=== PATIENT | female | born 1995 | race Two or more races ===

== ENCOUNTER 2025-03-26 13:56 | Outpatient (REF) | payer OTHER, SELFPAY ==
[2025-03-26 18:58] LABS: Alanine Aminotransferase 19 U/L (0-31); Albumin Level 4.5 g/dL (3.5-5.0); Alkaline Phosphatase 60 U/L (39-117); Anion Gap 11 (12-20); Aspartate Amino Transferase 23 U/L (5-31); Blood Urea Nitrogen 10 mg/dL (9-16); Calcium 8.7 mg/dL (8.4-10.2); Carbon Dioxide 26 mmol/L (22-29); Chloride 108 mmol/L (96-108); Cholesterol 183 mg/dL (<200); Estimated Glomerular Filt Rate > 60; HDL Cholesterol 62 mg/dL (>40); Iron 71 mcg/dL (30-160); Percent Iron Saturation 24 % (15-50); Potassium 3.7 mmol/L (3.3-5.1); Sodium 141 mmol/L (135-145); Total Iron Binding Capacity 297 mcg/dL (228-428); Total Protein 7.6 g/dL (6.5-8.0); Triglycerides 98 mg/dL (<150); Unsaturated Iron Binding 226 ug/dL
[2025-03-26 19:02] LABS: Ferritin 53 ng/mL (10-122); Hematocrit 37.3 % (37.0-47.0); Hemoglobin 12.3 g/dl (12.0-16.0); Mean Corpuscular HGB Conc 33.0 g/dl (31.0-35.0); Mean Corpuscular Hemoglobin 28.0 pg (27.0-33.0); Mean Corpuscular Volume 85.0 fL (80.0-98.0); NRBC Abs Auto 0.000 X10*3/uL (0.0-0.012); NRBC Pct Auto 0.0 /100WBC (0.0-0.2); Platelet Count 416 X10*3/uL (160-400); Red Blood Count 4.39 X10*6/uL (4.20-5.50); White Blood Count 5.4 X10*3/uL (4.8-10.8)
[2025-03-26 19:04] LABS: Folate 9.3 ng/mL (> or = 4.0); Vitamin B12 658 pg/mL (200-900)
== END 2025-03-26 13:57 | disposition home or self-care (01) ==
LOC: HO.WFDLDS 13:56
PROVIDERS: PCP Nurse Practitioner Family; Visit Provider Nurse Practitioner Family
DX: Z00.00 Encounter for general adult medical examination without abnormal findings (principal); L65.9 Nonscarring hair loss, unspecified; E55.9 Vitamin D deficiency, unspecified; D64.9 Anemia, unspecified; R53.83 Other fatigue; N92.6 Irregular menstruation, unspecified; Z80.3 Family history of malignant neoplasm of breast; Z97.5 Presence of (intrauterine) contraceptive device; Z87.42 Personal history of other diseases of the female genital tract; Z28.21 Immunization not carried out because of patient refusal; Z13.1 Encounter for screening for diabetes mellitus; Z76.89 Persons encountering health services in other specified circumstances
CPT/HCPCS: 36415; 80053; 80061; 82043; 82306; 82570; 82607; 82728; 82746; 83036; 83540; 84443; 85027; 96127

== ENCOUNTER 2025-03-26 13:56 | Outpatient (AMB) | payer OTHER, SELFPAY ==
--- NOTE | 2025-03-26 14:02 | A.OFFPC_ITS ---
Vital Signs 03/26/25 14:08 Height 5 ft 2 in Weight 162 lb 4 oz BMI 29.7 BP 122/70 Blood Pressure Location Lt brachial Position Sitting Respiration 12 Pulse 97 Pulse Source Pulse Oximeter Temp 97.2 F Temp Source Oral Pulse Oximetry (%) 98 Oxygen Delivery Method Room Air Intake Visit Reasons: CPE Intake Note: New patient to establish care and cpe Histology Supervisor Required: No Allergies No Known Allergies Allergy (Verified 03/26/25 14:04) Medication List - Last Reconciled 03/26/25 by BREANNA Rodriguez No Known Home Meds Tobacco use date assessed: 03/26/25 Dental Screening Dental Screen Date: 03/26/25 Did you have a dental visit in the last 12 months?: Yes Did you have a dental problem in the last 6 months where you did not have access to dental care?: No Was dental information given to patient?: Patient has dentist HPI HPI Comments History of Present Illness Details 29-year-old female with hx of abnormal p ap, hx of gastritis Social: Has 2 children, works as machinst for [employer] Fhx: Surgery: colpo Health Maintenance: PAP UTD, active w/ [employer]OR [employer] DOOR FUNDRAISING COLLECTOR Tdap 2019 Flu declined 03/26/25 Specialists: [employer]AISING COL[employer] History of Present Illness The patient is a 29-year-old female presenting to establish care, for a cpe, a nd for evaluation of fatigue. Fatigue: - The patient reports feeling very, mitchell y tired. - Her last blood work was performed duri ng her last , approximately six years ago. - She reports being under a significant amount of stress. Hair Loss: - The patient reports significant hair l oss, noting that a large amount falls out when she washes it, enough to clog the drain. - She states she has always had some str uggles with her hair. Irregular Menstruation: - The patient reports her menstrual cycl e is all over the place. - She currently has a Nexplanon implant, which is due for removal in October of next year. - She notes her cycle was similarly irre gular during her previous experience with the implant. History of Abnormal Pap Smear: - The patient has a history of two or th ree abnormal Pap smears. - One of the abnormal results led to a c olposcopy, which had fine results. - The abnormal cells subsequently cleare d on their own. - Her last Pap smear, performed last yea r, was normal. Family history of malignant neoplasm of breast: - The patient's maternal grandmother was diagnosed with breast cancer at an age younger than 50. - The patient is unaware if the cancer w as genetic. - She has limited knowledge of her exten ded family's medical history. Past Medical History - History of gastritis as a child, which has since resolved. - History of 2-3 abnormal Pap smears, wi th a subsequent normal colposcopy and spontaneous resolution. Her most recent Pap smear was normal. - History of astigmatism, which is not c urrently bothersome. - Nexplanon implant currently in use, du e for removal in October of next year. - Denies history of gestational diabetes or hypertension. Past Surgical History - Colposcopy following an abnormal pap s mear. Family History - Maternal grandmother had breast cancer before the age of 50. - The patient has limited information on her family history otherwise. Social History - Employment: Works as a milling machinist. - Family status: Has two children, aged 8 and 6. - Child development: Her 6-year-old john bloom has ADHD. - Stress: Reports being under a signific ant amount of stress. Health Maintenance - The patient was advised to follow up w ith her DYE MIXER for breast care. - Vaccination status was reviewed; the butch roach will complete her hepatitis B vaccine series at her workplace and has declined the influenza vaccine. - Plan to obtain blood work today. Review of Systems - Constitutional: Reports significant fa tigue. Reports high levels of stress. - Integumentary: Reports significant jasmeet r loss. Denies any open areas or sores on her feet. - HEENT: Reports a dry nose. Denies prob lems with her vision, but notes a history of astigmatism. Denies feeling weak or faint with lab draws. - Gastrointestinal: Reports normal bowel and bladder function. Denies abdominal pain. - Genitourinary: Reports irregular menst rual cycles. Physical Exam General: Well developed, well nourished, in no acute distress. Appears stated age. Patient reports feeling very tired and experiencing hair loss. Head: Normocephalic, atraumatic. Eyes: Pupils are equal, round and reactive to light and accommodation. Conjunctivae are clear. Scleras nonicteric bilat. Vision grossly normal. Ears: TMs clear AU, EACS WNL Nose: Patent, without discharge. Patient reports dryness in the nose. Neck: No carotid bruit bilat. Supple, no adenopathy or thyromegaly. Patient reports no pain or tenderness. Breast: Edu on SBE. Family history of breast cancer in maternal grandmother before age 50. Lungs: Clear to auscultation bilaterally. No rales, rhonchi or wheeze noted. Good air flow in all page. Heart: Regular rate and rhythm. No murmurs, click, rubs or gallops are noted. Abdomen: Bowel sounds present in all quadrants. The abdomen is soft, nontender, with no masses or organomegaly noted. No hernias are noted. : Deferred. Reviewed recommendations for routine [employer]OR FUNDRAISING COL[employer]OR. Pulses: Peripheral pulses are equal and palpable bilaterally. Extremities: No clubbing, cyanosis nor edema is noted. Patient reports no open areas or sores on feet. Neurologic: Gait and station normal. Cranial Nerves 2-12 intact. Motor strength grossly symmetrical and intact. No sensory loss. Balance normal. Skin: No rashes, ulcers, or lesions noted. Turgor is good. Skin color is good. Hair and nails are without abnormalities, although patient reports significant hair loss. Psych: Normal eye contact, affect and mood appropriate, and normal interactions. Patient is alert and appropriate to context. Reports being under a lot of stress. Results - Pap Smear: Patient reports her last pa p smear, performed last year, was normal. - Colposcopy: A past colposcopy followin g an abnormal pap smear was normal. Medical Decision Making The patient is a 29-year-old female here to establish care. Her main concerns are fatigue and hair loss. She has not had routine lab work since her last six years ago, so a general lab screen is indicated to evaluate for common causes of fatigue, such as anemia or thyroid issues. Due to the additional complaint of significant hair loss, the lab panel will be expanded to further investigate potential underlying causes. Her irregular menstrual cycle is likely attributable to her Nexplanon implant, as she had a similar experience with a previous implant. The family history of premenopausal breast cancer in her maternal grandmother is noted, and the importance of continued breast health screening with her DYE MIXER was discussed. The plan is to obtain labs to investigate her symptoms and follow up in two weeks to review the results. Plan 1. Fatigue - A general lab screening will be perfor med to investigate potential causes. - A follow-up visit is scheduled in [facility] two weeks to review the lab re sults, which can be conducted either in-person or via telehealth. 2. Hair Loss - Additional labs will be ordered to inv estigate potential causes of hair loss. Patient Instructions - Please stop at the motel front desk attendant to get a printout from today's visit. - Let the staff at the motel front desk attendant know t hat you need to have blood work done. - Schedule a follow-up appointment in out two weeks to review your lab results. You can choose to have this appointment in person or as a video visit. - Remember to contact your OBGYN's offic e to schedule your breast exam for this year. - If you are experiencing dry nose, you can use a saline (salt water) spray to help with moisture. - You are due for your last dose of the hepatitis B vaccine, which can be administered through your workplace. Consent Patient was informed and verbally consented to the use of an ambient scribe for clinic note documentation during this visit. An additional 20 minutes was spent addressing the problem(s) noted at todays visit. This includes time spent before the visit reviewing the chart, time spent during the visit, and time spent after the visit on documentation reviewing laboratory results, diagnostic imaging, medications, performing a medically necessary evaluation, counseling on diagnoses, care coordination, ordering appropriate tests, ordering appropriate medications, review of tests performed by other providers, reporting test results with the patient, communication with other healthcare providers. [facility] Medical History (Updated 03/26/25 @ 14:40 by ZEINAB Rodriguez-PRIYANKA) No pertinent past medical history Surgical History (Updated 03/26/25 @ 14:29 by ZEINAB Rodriguez-PRIYANKA) History of colposcopy No pertinent past surgical history Family History (Updated 03/26/25 @ 14:16 by Heber Alexis MA) Father HTN (hypertension) Substance abuse Maternal Grandmother HTN (hypertension) Breast cancer Paternal Grandmother HTN (hypertension) High cholesterol Asthma Sister Asthma Paternal Grandfather Substance abuse Social History (Updated 03/26/25 @ 14:03 by Heber Alexis MA) Housing: House Alcohol intake: current Alcohol intake frequency: a few times a month Patient Tobacco Use Status: Never used Tobacco e-Cigarette/Vaping Use: Never Used Second Hand Smoke Exposure: No service: No Current occupational status: employed Current occupation: [employer] Cognitive needs: No Hearing needs: No Vision needs: No Questionnaire PHQ-9 Over the last 2 weeks, how often have you been bothered by any of the following problems? 1. Little interest or pleasure in doing things: not at all 2. Feeling down, depressed, or hopeless: several days 3. Trouble falling or staying asleep, or sleeping too much: not at all 4. Feeling tired or having little energy: several days 5. Poor appetite or overeating: more than half the days 6. Feeling bad about yourself - or that you are a failure or have let yourself or your family down: not at all 7. Trouble concentrating on things, such as reading the newspaper or watching television: not at all 8. Moving or speaking so slowly that other people could have noticed. Or the opposite - being so fidgety or restless that you have been moving around a lot more than usual: not at all 9. Thoughts that you would be better off or of hurting yourself in some way: not at all Total score: 4 Depression Screening Interpretation: Negative Depression Screening Done: Yes 14626 - PHQ-9 Billing: Yes Source: Developed by Drs. Baudilio Mondragon, Cheyanne Alberto, Mariano Michelle and colleagues, with an educational vance from [employer]. Thrive Questionnaire Date Thrive assessed: 03/26/25 I am a: Patient What is your living situation today?: I have a steady place to live Within the past 12 months, did the food you bought not last and you didn't have the money to get more?: Never true Within the past 12 months, did you worry whether your food would run out before you got money to buy more?: I choose not to answer this question Do you have trouble paying for medicines?: No Do you have trouble getting transportation to medical appointments?: No Do you have trouble paying your heating and electricity bill?: No Do you have trouble taking care of your child, family member or friend?: No Do you have trouble with day-to-day activities such as bathing, preparing meals, shopping, managing finances, etc.?: No Are you currently unemployed and looking for a job?: No Are you interested in more education?: Yes Please select the resources that you would like help with: Childcare Currently or been in a relationship where the following occur: No concerns reported THRIVE Score: 0 AUDIT C Alcohol Use Questionnaire (AUDIT-C) 1. How often do you have a drink containing alcohol?: 2-4 times a month 2. How many drinks containing alcohol do you have on a typical day when you are drinking?: 1 or 2 3. How often do you have six or more drinks on one occasion?: Never Total Score: 2 Score Reviewed/Action Taken: Yes RHONA-7 AMB Questionnaire RHONA-7 Date RHONA - 7 assessed: 03/26/25 Feeling nervous, anxious, or on edge: 1 = Several days Not being able to stop or control worryin = Several days Worrying too much about different things: 1 = Several days Trouble relaxin = Not at all Being so restless that it is hard to sit still: 0 = Not at all Becoming easily annoyed or irritable: 1 = Several days Feeling afraid as if something awful might happen: 0 = Not at all Total RHONA-7 score (0-4 normal; 5-9 mild; 10-14 moderate; 15-21 severe): 4 Source: Developed by Drs. Baudilio Mondragon, Cheyanne Alberto, Mariano Michelle and colleagues, with an educational vance from [employer]. RHONA-7 Assessment Billing RHONA-7 Assessment Tool: RHONA-7 Assessment 08002 Physical exam (Primary Care) Vital Signs: Last Vital Signs Temp 97.2 F 03/26/25 14:08 Pulse 97 03/26/25 14:08 Resp 12 03/26/25 14:08 BP 122/70 03/26/25 14:08 Pulse Ox 98 03/26/25 14:08 Oxygen Delivery Method Room Air 03/26/25 14:08 BMI result Body Mass Index 29.7 Tobacco/Smoking Status: Tobacco use Status Tobacco use date assessed 03/26/25 03/26/25 14:11 Patient Tobacco Use Status Never used Tobacco 03/26/25 14:11 e-Cigarette/Vaping Use Never Used 03/26/25 14:11 PHQ-9: PHQ-9 Score PHQ-9: Total score 4 03/26/25 14:04 Depression Screening Interpretation: Negative Thrive Assessment: Date of Thrive Assessment Date Thrive assessed 03/26/25 03/26/25 14:04 Currently or been in a relationship where the following occur: No concerns reported Coding Level of Care Code New Pt Level 3 (22636) New Pt Prev Care 18-39yr(33215 Diagnoses Encounter to establish care Z76.89 Family history of breast cancer Z80.[address] Z97.5 Fatigue R53.83 Laboratory exam ordered as part of routine general medical examination Z00.00 History of abnormal cervical Pap smear Z87.42 Influenza vaccination declined Z28.21 Hair loss L65.9 Encounter for general adult medical examination without abnormal findings Z00.00 Additional Codes RHONA-7 Assessment Billing - RHONA-7 Assessment Tool: RHONA-7 Assessment 75208 ([id number]) PHQ-9 - 26954 - PHQ-9 Billing: Yes ([id number]) Assessment & Plan Assessment & Plan (1) Encounter to establish care: Code(s): Z76.89 - Persons encountering health services in other specified circumstances (2) [place] history of breast cancer: [place] [facility] [place] Code(s): Z80.3 - Family history of malignant neoplasm of breast Category: Medical (3) Nexplanon in place: Code(s): Z97.5 - Presence of (intrauterine) contraceptive device Category: Medical (4) Fatigue: Code(s): R53.83 - Other fatigue Category: Medical (5) Laboratory exam ordered as part of routine general medical examination: Code(s): Z00.00 - Encounter for general adult medical examination without abnormal findings Category: Medical (6) History of abnormal cervical Pap smear: Onset Date: ~2023 Comment: [facility] Code(s): Z87.42 - Personal history of other diseases of the female genital tract Category: Medical (7) Influenza vaccination declined: Onset Date: ~03/26/25 Code(s): Z28.21 - Immunization not carried out because of patient refusal Category: Medical (8) Hair loss: Code(s): L65.9 - Nonscarring hair loss, unspecified Category: Medical (9) Encounter for general adult medical examination without abnormal findings: Onset Date: ~03/26/25 Code(s): Z00.00 - Encounter for general adult medical examination without abnormal findings Category: Medical Plan , Orders: Orders Complete Blood Count no Diff Today Z00.00 - Encounter for general adult medical examination without abnormal findings Comprehensive Met. Panel Today Z00.00 - Encounter for general adult medical examination without abnormal findings Lipid Panel Today Z00.00 - Encounter for general adult medical examination without abnormal findings Microalbumin, Random (w Creat) Today Z00.00 - Encounter for general adult medical examination without abnormal findings IRON PROFILE Today L65.9 - Nonscarring hair loss, unspecified Ferritin Today L65.9 - Nonscarring hair loss, unspecified Hemoglobin A1c Today Z00.00 - Encounter for general adult medical examination without abnormal findings TSH reflex Free T4 Today Z00.00 - Encounter for general adult medical examination without abnormal findings Vitamin B12 and Folate Today Z00.00 - Encounter for general adult medical examination without abnormal findings Vitamin D 25-OH Total Today Z00.00 - Encounter for general adult medical examination without abnormal findings Patient Instructions: Walk-In Care (Urgent Care): We Make it Easy Walk-in for urgent medical issues such as: ? Seasonal Allergies ? Insect Bites ? Cough ? Diarrhea ? Acute Asthma Attacks ? Back, Knee or Joint Pain ? Ear Infection ? Fever without a Rash ? Headaches ? Nausea ? [place] [facility], Rash or Skin Irritation ? Sore Throat ? Sports Physicals ? Vomiting Most insurances are accepted. Patients do not need to be part of the [facility] to seek care at the walk-in clinic. Locations [address], [place] Open Tuesday through Tuesday 8am-5pm *Hours may vary due to staffing availability. To confirm Walk-In Care hours please call. [address] [place] [address] ? [phone] [facility] Walk-In Care in [place] provides services to ages 18 and over. Open Tuesday-Tuesday: 7 a.m. to 5 p.m. and Tuesday: 9 a.m. to 3 p.m.* *Hours may vary due to staffing availability. To confirm Walk-In Care hours in [place], please call [phone]. [address] [place] [address] ? [phone] [facility] Walk-In Care in [place] provides services to ages 12 and over. Open Tuesday-Tuesday: 8 a.m. to 5 p.m. Hours may vary due to staffing availability. To confirm Walk-In Care hours in [place], please call [phone]. LABORATORY SERVICES: [facility] ? Primary Location [address] [place] [address] Tuesday through Tuesday 6:00 AM ? 5:00 PM Tuesday 7:00 AM ? 11:00 AM* [phone] The [facility] is centrally located near the front entrance of the [facility] for easy outpatient access. Convenient parking is provided for outpatients. *Hours may vary due to staffing availability. To confirm Laboratory hours for any location, please call [phone]. Offsite Location For your convenience, we offer offsite laboratory draw stations at the following locations: [address] [place] [address] ? [facility] [address], [address] Tuesday through Tuesday 7:30 AM ? 1:00 PM* [phone] *Hours may vary due to staffing availability. To confirm Laboratory hours for any location, please call [phone]. [place] ? [address] Tuesday through Tuesday 6:00 AM ? 3:30 PM* Tuesday 6:30 AM ? 3 PM* [phone] *Hours may vary due to staffing availability. To confirm Laboratory hours for any location, please call [phone] [place] [address] Tuesday through Tuesday 7:30 AM ? 4:00 PM* [phone] *Hours may vary due to staffing availability. To confirm Laboratory hours for any location, please call [phone] [place] [address] Tuesday through 9:00 AM ? 4:00 PM* *Hours may vary due to staffing availability. To confirm Laboratory hours for any location, please call [phone]. Appointments are not necessary. Walk-ins are welcome. Like all the departments throughout the [facility], our Lab undergoes frequent reviews to ensure the quality and accuracy of test results, and our staff takes special pride in its status as a nationally accredited facility. Patient Portal: [employer] [facility] ONE PATIENT. ONE RECORD. BETTER CARE. [facility] has a fully integrated, cutting- edge mobile electronic health information system that has revolutionized the way we care for our patients and manage our organization. This system improves communication and coordination enabling us to provide safe, higher-quality care, and an overall positive experience for staff and patients. Our first priority, as always, is to deliver the highest quality care possible. The system is running in the background supporting that priority. This portal is for all [facility] services and practices. If you are experiencing any technical difficulties with enrolling or logging into the Patient Portal please complete the [facility] Patient Portal Technical Support Form. [facility] now offers a new secure on-line interactive tool for patients to review their health information ? ?Patient Portal. This interactive web portal will enable patients and their families to take an active role in their care by providing easy, secure access to their health information via the internet. The Patient Portal provides patients with instant access to their health information, including laboratory results, medications, allergies, demographic information, visit history, and more. In addition to managing their own care, parents and health care proxies with authorized consent will appreciate the ability to access the records of those individuals for whom they provide care. Please note: if you wish to gain access (Proxy) to another patient?s portal, you will be required to come to the Medical Records Department in person at [facility]. Both the patient giving proxy access and the proxy will need to provide photo identification and complete the appropriate authorization. The Patient Portal also allows track their appointments online. The [facility] Patient Portal also saves patients time by allowing them to submit updates to their demographic and contact information prior to their visits. Portal email notifications will also alert patients to any new activity on their portal, such as test results and new appointments. In order to initially enroll in the [facility] Patient Portal, you will need to enter some required information including the following: * your [facility] Medical Record number * your personal home email address * name * date of Please note: In order to enroll in the [facility] Patient Portal, we need to have your email address on file in your electronic medical record. ?The email address needs to be specific for one person (yourself) in order for your Portal enrollment to be successful. ?You can update your email address in person with our Registration staff when you are registering for a hospital visit. ?Otherwise , you will need to come to the Health Information Management (Medical Records) Department at [facility]. ?We are open from Tuesday ? Tuesday from 7:30 a.m. ? 4:30 p.m. ?You will be required to present a photo id. Once you have successfully enrolled in the Patient Portal, you will receive a one-time user id and password for the Portal, sent to your email address. ?This will allow you to log into the Patient Portal within 99 hrs and reset your own logon id and password, and define personal security questions. ?Once your permanent login and password have been set, you can log into the [facility] Patient Portal at any time via the blue button above or from the Portal Logon button on any page of the [facility] website. [facility] and [facility] encourage all of our patients to enroll in Patient Portal as it presents a valuable opportunity for patients and their families to actively participate in their care and stay healthy Welcome to [facility]. ?We look forward to working with you. Health screenings for women You should visit your health care provider from time to time, even if you are healthy. The purpose of these visits is to: Screen for medical issues Assess your risk for future medical problems Encourage a healthy lifestyle Update vaccinations and other preventive care services Help you get to know your provider in case of an illness Information Even if you feel fine, you should still see your provider for regular checkups. These visits can help you avoid problems in the future. For example, the only w ay to find out if you have high blood pressure is to have it checked regularly. High blood sugar and high cholesterol levels also may not have any symptoms in the early stages. A simple blood test can check for these conditions. There are specific times when you should see your provider or receive specific health screenings. The [place] Preventive Services Task Force publishes a list of recommended screenings. Below are screening guidelines for women ages 18 to 39. BLOOD PRESSURE SCREENING Your blood pressure should be checked at least once every 3 to 5 years if: Your blood pressure is in the normal range (top number less than 120 mm Hg and bottom number less than 80 mm Hg) You don't have risk factors for high blood pressure Ask your provider if you need your blood pressure checked more often if: The top number is 120 to 129 mm Hg or the bottom number is 70 to 79 mm Hg You have diabetes, heart disease, kidney problems, are overweight, or have certain other health conditions You have a first-degree relative with high blood pressure You are Black You had high blood pressure during a If the top number is 130 mm Hg or greater or the bottom number is 80 mm Hg or greater, this is considered stage 1 hypertension. Schedule an appointment with your provider to learn how you can reduce your blood pressure. Watch for blood pressure screenings in your area. Ask your provider if you can stop in to have your blood pressure checked. BREAST CANCER SCREENING Experts do not agree about the benefits of breast self-exams in finding breast cancer or saving lives. Talk to your provider about what is best for you. A screening mammogram is not recommended for most women under age 40. Your provider may discuss and recommend mammograms, MRI scans, or ultrasounds if you have an increased risk for breast cancer, such as: A mother or sister who had breast cancer at a young age (most often starting screening earlier than the age the close relative was diagnosed) You carry a high-risk genetic marker CERVICAL CANCER SCREENING Cervical cancer screening should start at age 21 years unless your provider advises otherwise. After the first test: Women ages 21 through 29 should have a Pap test every 3 years. Exoprts do not agree on whether HPV testing is recommended for this age group. Women ages 30 through 65 should be screened with either a Pap test every 3 years or the HPV test every 5 years or both tests every 5 years (called cotesting ). Women who have been treated for precancer (cervical dysplasia) should continue to have Pap tests for 20 years after treatment or until age 65, whichever is longer. If you have had your uterus and cervix removed (total hysterectomy), and you have not been diagnosed with cervical cancer or precancer (high grade cervical neoplasia), you do not need cervical cancer screening. CHOLESTEROL SCREENING Cholesterol screening should begin at: Age 45 for women with no known risk factors for coronary heart disease Age 20 for women with known risk factors for coronary heart disease Repeat cholesterol screening should take place: Every 5 years for women with normal cholesterol levels More often if changes occur in lifestyle (including weight gain and diet) More often if you have diabetes, heart disease, kidney problems, or certain other conditions DIABETES SCREENING You should be screened for diabetes starting at age 35 and then repeated every 3 years if you have no risk factors for diabetes. Screening may need to start earlier and be repeated more often if you have other risk factors for diabetes, such as: You have a first degree relative with diabetes. You are overweight or have obesity. You have high blood pressure, prediabetes, or a history of heart disease. Screening for diabetes should be done if you are planning to become and you are overweight and have other risk factors such as high blood pressure. DENTAL EXAM Go to the dentist once or twice every year for an exam and cleaning. Your dentist will evaluate if you need more frequent visits. EYE EXAM Have an eye exam every 5 to 10 years before age 40. If you have vision problems, have an eye exam every 2 years or more often if recommended by your provider. You should have an eye exam that includes an examination of your retina (back of your eye) at least every year if you have diabetes. IMMUNIZATIONS Commonly needed vaccines include: Flu shot: get one every year. COVID-19 vaccine: ask your provider what is best for you. Tetanus-diphtheria and acellular pertussis (Tdap) vaccine: have one at or after age 19 as one of your tetanus-diphtheria vaccines if you did not receive it as an adolescent. Tetanus-diphtheria: have a booster (or Tdap) every 10 years. Varicella vaccine: receive 2 doses if you never had chickenpox or the varicella vaccine. Hepatitis B vaccine: receive 2, 3, or 4 doses, depending on your exact circumstances. Measles, mumps, and rubella (MMR) vaccine: receive 1 to 2 doses if you are not already immune to MMR. Your provider can tell you if you are immune. Ask your provider about the human papillomavirus (HPV) vaccine if: You have not received the HPV vaccine in the past You have not completed the full vaccine series (you should catch up on this shot) Ask your provider if you should receive other immunizations if you have certain health problems that increase your risk for some diseases such as pneumonia. INFECTIOUS DISEASE SCREENING Women who are sexually active should be screened for chlamydia and gonorrhea up until age 25. Women 25 years and older should be screened for chlamydia and gonorrhea if at high risk. Screening for hepatitis C: All adults ages 18 to 79 should get a one-time test for hepatitis C. people should be screened at every . Screening for human immunodeficiency virus (HIV): All people ages 15 to 65 should get a one-time test for HIV. Depending on your lifestyle and medical history, you may also need to be screened for infections such as syphilis and HIV, as well as other infections. PHYSICAL EXAM All adults should visit their provider from time to time, even if they are healthy. The purpose of these visits is to: Screen for disease Assess your risk of future medical problems Encourage a healthy lifestyle Update your vaccinations and other preventive care services Maintain a relationship with a provider in case of an illness Your height, weight, and BMI should be checked at every exam. During your exam, your provider may ask you about: Depression and anxiety Diet and exercise Alcohol and tobacco use Safety issues, such as using seat belts, smoke detectors, and intimate partner violence Your medicines and risk for interactions SKIN SELF-EXAM Your provider may check your skin for signs of skin cancer, especially if you're at high risk, such as if you: Have had skin cancer before Have close relatives with skin cancer Have a weakened immune system OTHER SCREENING Talk with your provider about colon cancer screening if you have a strong family history of colon cancer or polyps, or if you have had inflammatory bowel disease or polyps yourself. Routine bone density screening of women under 40 is not recommended.
[2025-03-26 14:08] VITALS: BP 122/70; PULSE 97; RESP 12; TEMP 36.2; O2SAT 98; BMI 29.7
--- OUTSIDE RECORDS SUMMARY | 2025-03-26 18:17 | XMS_ITS | Data Portability ---
Author Organization [facility], [address] Address [address] [place] [address] Assessment No assessment recorded. Plan of Treatment Reminders Order Date Submit Date Provider Last Modified By Organization Details Last Modified Time Details Appointments None recorded. Lab rapid strep group A, throat 2022 023 [facility] [address] [address], [address] [place], [address], 3 11:24:20 rapid SARS CoV 2 Ag, QL IA, respiratory specimen 2022 023 [facility] [address] [address], [address] [place], [address], 3 11:24:20 rapid flu (A+B) 2022 023 [facility] [address] [address] [place], [address], 3 11:24:20 Referral None recorded. Procedures None recorded. Surgeries None recorded. Imaging None recorded. Medication Orders amoxicillin 875 mg tablet 2022 023 [id number], [address] [facility], [place], [address], 3 11:24:22 Patient TargetsNo targets recorded. Patient Instructions Encounter Date Encounter Id Patient Instructions Last Modified By Organization Details Last Modified Time 09/07/2022 [id number] Discussed potential complications and intervention options with the patient during this visit. Patient was instructed to increase room humidity and eat soft bland foods. Raising the head of the bed, lozenges, and saline nasal spray were also recommended. Patient may take ibuprofen or acetaminophen as needed for pain control. If the issue does not improve in 24-48 hours, patient should return to the clinic for follow-up. You have been prescribed an antibiotic for your bacterial illness. While antibiotics are sometimes necessary, they can have a negative impact upon the healthy bacteria within your body. This can result in diarrhea/loose stools and yeast infections. By taking probiotics during the course of your prescription, you can lessen the probability of these undesirable side effects. Probiotics can be purchased sdin-zri-glklzne at your pharmacy in the form of capsules or gummies. They are also found naturally in yogurt with live cultures. Mix salt into a quarter-glass of warm water and stir until no more salt will dissolve. Gargle and spit out the salt water mixture one mouthful at a time until the glass is empty. Repeat 4 times daily. Hand hygiene is a [place] measure for preventing spread to others, especially after coughing or sneezing and before preparing foods or eating, and we remind all patients of its importance. Please discard of your current tooth brush and get a new one after being on the antibiotic for 3-4 days to prevent reinfection. You are considered contagious until you have the antibiotic for 24 hours. We have sent out for lab results, typically take 3-5 days to return. Not available 09/07/2022 11:24:10 If you test positive for COVID-19, stay home for at least 5 days and isolate from others in your home. You are likely most infectious during these first 5 days. Wear a high-quality mask if you must be around others at home and in public. Do not go places where you are unable to wear a mask. For travel guidance, see CDC s Travel webpage. Do not travel. Stay home and separate from others as much as possible. Use a separate bathroom, if possible. Take steps to improve ventilation at home, if possible. Don t share personal household items, like cups, towels, and utensils. Monitor your symptoms. If you have an emergency warning sign (like trouble breathing), seek emergency medical care immediately. If you had symptoms and: Your symptoms are improving You may end isolation after day 5 if: You are fever-free for 24 hours (without the use of fever-reducing medication). Your symptoms are not improving Continue to isolate until: You are fever-free for 24 hours (without the use of fever-reducing medication). Your symptoms are improving. Regardless of when you end isolation Until at least day 11: Avoid being around people who are more likely to get very sick from COVID-19. Remember to wear a high-quality mask when indoors around others at home and in public. Do not go places where you are unable to wear a mask until you are able to discontinue masking (see below). For travel guidance, see CDC s Travel webpage. Not available 09/07/2022 11:24:04 Reason for Referral None Reported. Results Created Date Observation Date Name Description Value Unit Range Abnormal Flag Note LastModifiedBy Organization Detail LastModifiedTime 09/08/1909/07/2022 rapid flu (A+B) Unknown Analyte Normal = Negati ve Not Available [address] [place], [address], 09/07/2022 11:10:37 09/08/19 23 09/07/2022 rapid flu (A+B) Unknown Analyte Normal = Negati ve Not Available [address] [place], [address], 09/07/2022 11:10:37 09/08/19 23 09/07/2022 rapid flu (A+B) Unknown Analyte negati ve Not Available [address] [place], [address], 09/07/2022 11:10:37 09/08/19 23 09/07/2022 rapid flu (A+B) Unknown Analyte negati ve Not Available [address] [place], [address], 09/07/2022 11:10:37 0409/07/2022 rapid SARS CoV 2 Ag, QL IA, respi rator y speci men Unknown Analyte Normal =Negat derek Not Available [address] [place], [address], 09/07/2022 11:10:29 09/08/19 23 09/07/2022 rapid SARS CoV 2 Ag, QL IA, respi rator y speci men Unknown Analyte negati ve Not Available [address] [place], [address], 09/07/2022 11:10:29 09/08/1909/07/2022 rapid strep group A, throa t Unknown Analyte Normal = Negati ve Not Available [address] [place], [address], 09/07/2022 11:10:20 09/08/1909/07/2022 rapid strep group A, throa t Unknown Analyte positi ve Not Available [address] [place], [address], 09/07/2022 11:10:20 Result Notes None recorded. Problems No Known Problems Medical Equipment None Reported. Allergies No known drug allergies Medications Name Sig Start Date Stop Date Status Note LastModified by Organization Details LastModified Time penicillin V potassium 500 mg tablet TAKE 1 TABLET BY MOUTH TWICE A DAY FOR 10 DAYS FOR INFECTION active Not Available Not Available No t Available amoxicillin 875 mg tablet TAKE 1 TABLET BY MOUTH EVERY 12 HOURS WITH MEALS FOR 10 DAYS active Not Available Not Available No t Available oseltamivir 75 mg capsule TAKE 1 CAPSULE BY MOUTH TWICE A DAY FOR 5 DAYS active Not Available Not Available No t Available amoxicillin 875 mg-potassium clavulanate 125 mg tablet TAKE 1 TABLET BY MOUTH TWICE A DAY FOR 10 DAYS active Not Available Not Available No t Available Nexplanon 68 mg subdermal implant active Not Available Not Available Not Available Vitals Date Recorded Body height Body mass index (BMI) Body weight Oxygen saturation Oxygen saturation in Arterial blood by Pulse oximetry Heart rate Respiratory rate Body temperature Systolic And Diastolic Provider Name and Address Organization Details Last Updated DateTime 3 157.48 cm 27.4 kg/m2 61249.8 6 g 98 % 98 % 108 /min 18 /min 99.7 [degF] 113/75 mm[Hg] Nigel Forbes [facility] - [facility] 3 11:09:40 Social History Question Answer Notes LastModified by [place] Details LastModified Time Tobacco Smoking Status Never Smoker Nigel Forbes hui [place] - [facility] 09/07/2022 11:10:13 Have You Recently Traveled Abroad? No Information not available 09/07/2022 Sex: Unknown Functional Status Question Answer Note LastModified by [employer] Details LastModified Time Do you use any illicit or recreational drugs? No Information not available 09/07/2022 Do you or have you ever used any other forms of tobacco or nicotine? No Information not available 09/07/2022 Mental Status None recorded. Family History Relationship Description Onset Age of this Age Resolved Age Notes LastModified by Organization Details LastModified Time Father No current problems or disability Not available 09/07 11:10:05 Mother No current problems or disability Not available 09/07 11:10:06 Medical History No medical history recorded. Gynecological HistoryNo gynecological history recorded. Obstetrics History GPAL:G 0 P 0 0 0 0 Past Encounters Encounter ID Performer Location Encounter Start Date Encounter Closed Date Diagnosis/Indication Diagnosis SNOMED-CT Code Diagnosis ICD10 Code Diagnosis IMO Codes Diagnosis Note [id number] [address] [address] [place] [address] 10/15/2021 08:13:19 10/15/2021 09:11:00 [id number] Gregory Gray NP [address] [place] [address] 09/07/2022 10:47:57 09/07/2022 11:25:13 Streptococcal sore throat 25117145 J02.0 Health Concerns Section Related Observation LastModified by Organization Detai ls LastModified Time None Recorded Concern Status LastModified by Organization Details LastModified Time None Recorded Advance Directives Directive None Recorded Payers Insurance Date Sequence Insurance Name Policy Number Policy Lopez Covered Member ID Lopez Member ID Guarantor Name 09/07/2022 1 [facility] [id number] Rosio Haque [id number] Rosio Haque Notes Date Note Type Note Provider Name and Address Organization Details Recorded Time 09/07/2022 text/html Sore throatRepor anabella by PatientSore ThroatFor associated symptoms, patient reportssore throat,hoarseness,cough ing, andsinus pain/ congestionbut reportsno sputum production,no shortness of breath,no wheezing,no vomiting, andno nausea. For context, patient reportssick contactbut reportsno foreign travelandnon-smoker. For modifying factors, patient reportsexposed to strep non household. For source of patient information, patient reportsinformation obtained from patient,patient arrived at urgent care ambulatory, andlearning styles: auditory. For location, patient reportsthroat. For severity, patient reportsmild. For quality, patient reportssharpandburning. For onset/timing, patient reports3 days. Gregory Gray NP [address] [place], [address], [place] - [facility] 09/07/2022 11:26:06 OBGyn Episode No OBEpisode recorded.
== END 2025-03-26 14:40 | disposition home or self-care (01) ==
LOC: HO.HMCFM 13:57
PROVIDERS: PCP Nurse Practitioner Family; Visit Provider Nurse Practitioner Family
DX: Z00.00 Encounter for general adult medical examination without abnormal findings (principal); R53.83 Other fatigue; L65.9 Nonscarring hair loss, unspecified; Z80.3 Family history of malignant neoplasm of breast; Z97.5 Presence of (intrauterine) contraceptive device; Z87.42 Personal history of other diseases of the female genital tract; Z28.21 Immunization not carried out because of patient refusal

== ENCOUNTER 2025-04-10 15:32 | Outpatient (AMB) | payer OTHER, SELFPAY ==
--- NOTE | 2025-04-10 07:43 | MHC.PC.OV ---
Intake Visit Reasons: 2 weeks (tele FU lab results/fatigue Intake Note: Telehealth to review labs Director Of Emergency Nursing Required: No Allergies No Known Allergies Allergy (Verified 04/10/25 16:53) Medication List - Last Reconciled 04/10/25 by BREANNA Rodriguez No Known Home Meds Tobacco use date assessed: 04/10/25 Dental Screening Dental Screen Date: 04/10/25 Did you have a dental visit in the last 12 months?: Yes Did you have a dental problem in the last 6 months where you did not have access to dental care?: No Was dental information given to patient?: Patient has dentist HPI HPI Comments History of Present Illness Details 29-year-old female with hx of abnormal pap, hx of gastritis Social: Has 2 children, works as machinst for [employer] Fhx: Surgery: colpo Health Maintenance: PAP UTD, active w/ [employer] Tdap 2019 Flu declined 03/26/25 Specialists: [employer] History of Present Illness The patient is a 29-year-old female presenting for a review of lab results related to her complaints of fatigue and hair loss. Anemia and Menorrhagia: - Recent lab results showed a very mild anemia. - The patient reports experiencing heavy menstrual bleeding twice a month, with each period lasting for about seven days, which may contribute to her fatigue. - She acknowledges being tired as a mother of two who works full-time and is under a lot of stress. Vitamin D Deficiency: - Recent lab results indicated a low vitamin D level. - She was previously advised to start a multivitamin and just began taking a [employer] gummy multivitamin with omega-3 and 2000 IU of vitamin D. - She also purchased a separate 1000 IU vitamin D supplement. Fatigue and Hair Loss: - The patient's primary complaints are fatigue and hair loss. - Lab workup, including thyroid studies, showed no abnormalities to explain these symptoms aside from mild anemia and vitamin D deficiency. Hyperlipidemia: - Recent labs showed an LDL cholesterol level of 102 mg/dL, which is considered slightly high. Review of Systems - Constitutional: Reports fatigue. - Integumentary: Reports hair loss. - Genitourinary: Reports heavy menstrual bleeding occurring twice per month and lasting for seven days. - Psychiatric: Reports being under a lot of stress. Physical Exam - No physical exam was performed during this telehealth visit. - we were unable to connect via video despite attempt Results Labs 03/26/25 plt count 416, MPV 9.1, LDL 102, Vit D 28.4 otherwise wnl Assessment and Plan 1. Mild Anemia and Menorrhagia - The patient has mild anemia, likely secondary to menorrhagia, which is contributing to her fatigue. - An iron supplement prescription has been sent to the pharmacy. - The patient was counseled on strategies to minimize gastrointestinal side effects, such as taking the supplement at bedtime, with food, or on alternate days. - She was instructed to follow up if she cannot tolerate the supplement. - Repeat blood counts will be checked in 6 months. 2. Vitamin D Deficiency - The patient has a low vitamin D level. - She has started a [employer] multivitamin containing 2000 IU of vitamin D. It is acceptable for her to continue taking her additional 1000 IU vitamin D supplement for now, but she does not need to purchase another separate supplement in the future as the multivitamin is sufficient. - Vitamin D levels will be rechecked in 6 months. 3. Mild Hyperlipidemia - The patient's LDL cholesterol is slightly elevated at 102 mg/dL. - This is not clinically concerning at this time, and no immediate intervention is required. 4. Fatigue and Hair Loss - These symptoms are not fully explained by lab results, although they may be exacerbated by the mild anemia. - Life stressors are also noted as a contributing factor. - The plan is to address the anemia and vitamin D deficiency. 5. Follow-up - A follow-up visit will be scheduled in 6 months. - Lab orders for a CBC and vitamin D level will be placed, to be completed one week prior to the appointment. - The office will contact the patient to schedule the visit. Patient was given time to ask questions. All questions were answered to their satisfaction. Telehealth Attestation This was a telehealth visit conducted by phone. The patient has been explained that this is an interactive (audio/video) telehealth encounter and what that consists of. The patient understands and wishes to proceed. [employer]Kill platform was used. Total time spent caring for the patient today was 15 minutes. This includes time spent before the visit reviewing the chart, time spent during the visit, and time spent after the visit on documentation, reviewing laboratory results, diagnostic imaging, medications, performing a medically necessary evaluation, counseling on diagnoses, care coordination, ordering appropriate tests, ordering appropriate medications, review of tests performed by other providers, reporting test results with the patient, communication with other healthcare providers. [facility] Medical History (Updated 03/29/25 @ 11:06 by BREANNA Rodriguez) No pertinent past medical history Surgical History (Updated 03/26/25 @ 14:29 by BREANNA Rodriguez) History of colposcopy No pertinent past surgical history Family History (Updated 03/26/25 @ 14:16 by Heber Alexis MA) Father HTN (hypertension) Substance abuse Maternal Grandmother HTN (hypertension) Breast cancer Paternal Grandmother HTN (hypertension) High cholesterol Asthma Sister Asthma Paternal Grandfather Substance abuse Social History (Updated 03/26/25 @ 14:03 by Heber Alexis MA) Housing: House Alcohol intake: current Alcohol intake frequency: a few times a month Patient Tobacco Use Status: Never used Tobacco e-Cigarette/Vaping Use: Never Used Second Hand Smoke Exposure: No service: No Current occupational status: employed Current occupation: Transportation Broker Cognitive needs: No Hearing needs: No Vision needs: No Questionnaire Thrive Questionnaire Date Thrive assessed: 03/26/25 I am a: Patient What is your living situation today?: I have a steady place to live Within the past 12 months, did the food you bought not last and you didn't have the money to get more?: Never true Within the past 12 months, did you worry whether your food would run out before you got money to buy more?: I choose not to answer this question Do you have trouble paying for medicines?: No Do you have trouble getting transportation to medical appointments?: No Do you have trouble paying your heating and electricity bill?: No Do you have trouble taking care of your child, family member or friend?: No Do you have trouble with day-to-day activities such as bathing, preparing meals, shopping, managing finances, etc.?: No Are you currently unemployed and looking for a job?: No Are you interested in more education?: Yes Please select the resources that you would like help with: Childcare Currently or been in a relationship where the following occur: No concerns reported THRIVE Score: 0 RHONA-7 AMB Questionnaire RHONA-7 Date RHONA - 7 assessed: 03/26/25 Source: Developed by Channing Moniqueet B.W. Remy, Mariano Michelle and colleagues, with an educational vance from [employer]. Physical exam (Primary Care) Tobacco/Smoking Status: Tobacco use Status Tobacco use date assessed 03/26/25 04/10/25 07:45 Patient Tobacco Use Status Never used Tobacco 04/10/25 07:45 e-Cigarette/Vaping Use Never Used 04/10/25 07:45 Thrive Assessment: Date of Thrive Assessment Date Thrive assessed 03/26/25 04/10/25 07:45 Currently or been in a relationship where the following occur: No concerns reported Telehealth Telehealth Telehealth Platform: CardKill Location of provider rendering services: practice address Location of patient: address on file Patient Identification confirmed using: Name, : Yes Telehealth method: voice only Patient verbally consented to treatment: Yes Patient verbally consented to billing insurance company: Yes Patient informed of any privacy concerns related to visit: Yes Minutes spent on Phone/Video with Pt.: 8 Results Reviewed Results Reviewed: Laboratory 03/26/25 Result Units Range Interpretation Provider Comments White Blood Count 5.4 X10*3/uL (4.8-10.8) Red Blood Count 4.39 X10*6/uL (4.20-5.50) Hemoglobin 12.3 g/dl (12.0-16.0) Hematocrit 37.3 % (37.0-47.0) Mean Corpuscular Volume 85.0 fL (80.0-98.0) Mean Corpuscular Hemoglobin 28.0 pg (27.0-33.0) Mean Corpuscular Hemoglobin Concent 33.0 g/dl (31.0-35.0) Red Cell Distribution Width 12.4 % (11.0-16.0) Platelet Count 416 X10*3/uL (160-400) High Mean Platelet Volume 9.1 fL (9.4-12.3) Low Nucleated RBC Absolute Count (auto) 0.000 X10*3/uL (0.0-0.012) Nucleated Red Blood Cells % (auto) 0.0 /100WBC (0.0-0.2) Sodium Level 141 mmol/L (135-145) Potassium Level 3.7 mmol/L (3.3-5.1) Chloride Level 108 mmol/L (96-108) Carbon Dioxide Level 26 mmol/L (22-29) Anion Gap 11 (12-20) Low Blood Urea Nitrogen 10 mg/dL (9-16) Creatinine 0.59 mg/dL (0.5-1.4) Estimated Creatinine Clearance Calc Not Reportable Estimat Glomerular Filtration Rate > 60 Random Glucose 84 mg/dL (60-115) Estimated Average Glucose 97 mg/dL Hemoglobin A1c Percent 5.0 % (<6.0) Calcium Level 8.7 mg/dL (8.4-10.2) Iron Level 71 mcg/dL (30-160) Total Iron Binding Capacity 297 mcg/dL (228-428) Percent Iron Saturation 24 % (15-50) Unsaturated Iron Binding 226 ug/dL Ferritin 53 ng/mL (10-122) Total Bilirubin 0.2 mg/dL (0.0-1.0) Aspartate Amino Transf (AST/SGOT) 23 U/L (5-31) Alanine Aminotransferase (ALT/SGPT) 19 U/L (0-31) Alkaline Phosphatase 60 U/L (39-117) Total Protein 7.6 g/dL (6.5-8.0) Albumin 4.5 g/dL (3.5-5.0) Triglycerides Level 98 mg/dL (<150) Cholesterol Level 183 mg/dL (<200) LDL Cholesterol, Calculated 102 mg/dL (<100) High HDL Cholesterol 62 mg/dL (>40) Vitamin B12 Level 658 pg/mL (200-900) 25-Hydroxy Vitamin D Total 28.4 ng/mL (>30) Low Folate 9.3 ng/mL (> or = 4.0) Thyroid Stimulating Hormone (TSH) 0.37 uIU/mL (0.32-4.0) Urine Creatinine 80.75 mg/dL Urine Microalbumin < 5.0 mg/L Urine Microalbumin/Creatinine Ratio TNP Coding Level of Care Code Tele Est Pt Level 2 (18132) Complex EM visit Add On G2211 Diagnoses Fatigue R53.83 Hair loss L65.9 Mild anemia D64.9 Vitamin D deficiency E55.9 Assessment & Plan Assessment & Plan (1) Fatigue: Code(s): R53.83 - Other fatigue Category: Medical (2) Hair loss: Code(s): L65.9 - Nonscarring hair loss, unspecified Category: Medical (3) Mild anemia: Code(s): D64.9 - Anemia, unspecified Category: Medical (4) Vitamin D deficiency: Code(s): E55.9 - Vitamin D deficiency, unspecified Category: Medical Plan . Orders: Orders Ferritin 6 Months D64.9 - Anemia, unspecified, E55.9 - Vitamin D deficiency, unspecified, L65.9 - Nonscarring hair loss, unspecified, R53.83 - Other fatigue Complete Blood Count no Diff 6 Months D64.9 - Anemia, unspecified, E55.9 - Vitamin D deficiency, unspecified, L65.9 - Nonscarring hair loss, unspecified, R53.83 - Other fatigue Vitamin D 1,25 dihydroxy 6 Months D64.9 - Anemia, unspecified, E55.9 - Vitamin D deficiency, unspecified, L65.9 - Nonscarring hair loss, unspecified, R53.83 - Other fatigue IRON PROFILE 6 Months D64.9 - Anemia, unspecified, E55.9 - Vitamin D deficiency, unspecified, L65.9 - Nonscarring hair loss, unspecified, R53.83 - Other fatigue Medications: New cholecalciferol (vitamin D3) 50 mcg PO DAILY ferrous gluconate 18 mg PO DAILY 90 caps 2RF multivitamin 1 tab PO DAILY 90 tabs 2RF
== END 2025-04-10 17:01 | disposition home or self-care (01) ==
LOC: HO.HMCFM 15:33
PROVIDERS: PCP Nurse Practitioner Family; Visit Provider Nurse Practitioner Family
DX: D64.9 Anemia, unspecified (principal); L65.9 Nonscarring hair loss, unspecified; E55.9 Vitamin D deficiency, unspecified; N92.0 Excessive and frequent menstruation with regular cycle